=== PATIENT | female | born 1960 | race Caucasian/White ===

== ENCOUNTER 2017-02-16 00:21 | Emergency (ER) | payer MEDICARE ==
[2017-02-16 00:28] VITALS: BP 125/68; PULSE 60; O2SAT 96
--- NOTE | 2017-02-16 00:35 | ERPHSYRPT ---
- History of Present Illness Time Seen by Provider: 02/16/17 00:30 Source: patient Exam Limitations: no limitations Patient Subjective Stated Complaint: REPORTS THAT HER LOWER TOOTH HAS BEEN BOTHERING HER ALL DAY AND NOW CANT SEEM TO SLEEP AND BELIEVES THE TOOTH TO BE INFECTED Triage Nursing Assessment: AMBULATORY TO TREATMENT Physician History: States lower tooth 6 months ago and have not been able to see dentist. States thinks now it is infected with some swelling/pain to area. No fever, chills, dizziness, weakness or any systemic symptoms. States dull pain started today. Have not taken any meds for symptoms. Timing/Duration: today Severity: mild Modifying Factors: Improves With: eating (worsens) Associated Symptoms: No nausea, No vomiting, No fever Allergies/Adverse Reactions: No Known Drug Allergies Allergy (Unverified 02/16/17 00:23) Home Medications: Esomeprazole Magnesium [Nexium] 20 mg PO DAILY 02/16/17 [History] [place]-3 Fatty Acids [Fish Oil] 300 mg PO DAILY 02/16/17 [History] Hx Tetanus, Diphtheria Vaccination/Date Given: Yes Hx Influenza Vaccination/Date Given: No Hx Pneumococcal Vaccination/Date Given: No Immunizations Up to Date: Yes - Review of Systems Constitutional: No Symptoms, No Fever, No Chills Eyes: No Symptoms Ears, Nose, & Throat: Loose Teeth, Other (tooth pain) Respiratory: No Cough, No Dyspnea Cardiac: No Chest Pain, No Edema, No Syncope Abdominal/Gastrointestinal: No Abdominal Pain, No Nausea, No Vomiting, No Diarrhea Genitourinary Symptoms: No Dysuria Musculoskeletal: No Back Pain, No Neck Pain Skin: No Rash Neurological: No Dizziness, No Focal Weakness, No Sensory Changes Psychological: No Symptoms Endocrine: No Symptoms All Other Systems: Reviewed and Negative - Past Medical History Pertinent Past Medical History: Yes Cardiac History: High Cholesterol, Hypertension, Myocardial Infarction ([place]) Respiratory History: COPD Endocrine Medical History: Diabetes Type II GI Medical History: Hepatitis History: Kidney Cancer - Past Surgical History Past Surgical History: Yes Cardiac: Cardiac Catheterization, Cardiac Stent Musculoskeletal: Orthopedic Surgery Female Surgical History: Tubal Ligation Other Surgical History: KIDNEY - LEG/KNEE FUSION - Social History Smoking Status: Current every day smoker Exposure to second hand smoke: No Drug Use: none Patient Lives Alone: No - Female History Hx Last Menstrual Period: N/A - Nursing Vital Signs Nursing Vital Signs: Initial Vital Signs Temperature 98.5 F Temperature Source Oral Pulse Rate 60 Respiratory Rate 14 Blood Pressure [Right Arm] 125/68 Pain Intensity 10 - Physical Exam General Appearance: no apparent distress, alert Eye Exam: PERRL/EOMI, eyes nml inspection Ears, Nose, Throat Exam: normal ENT inspection, TMs normal, pharynx normal, moist mucous membranes, other (Multiple missing teeth with caries, some mild tenderness to lower cannines) Neck Exam: normal inspection, non-tender, supple, full range of motion Respiratory Exam: normal breath sounds, lungs clear, No respiratory distress Cardiovascular Exam: regular rate/rhythm, normal heart sounds, normal peripheral pulses Gastrointestinal/Abdomen Exam: soft, normal bowel sounds, No tenderness, No mass Back Exam: normal inspection, normal range of motion, No CVA tenderness, No vertebral tenderness Extremity Exam: normal inspection, normal range of motion, pelvis stable Neurologic Exam: alert, oriented x 3, cooperative, normal mood/affect, nml cerebellar function, nml station & gait, sensation nml, No motor deficits Skin Exam: normal color, warm, dry, No rash Lymphatic Exam: No adenopathy SpO2: 96 Oxygen Delivery: Room Air - Progress Progress: unchanged Progress Note: 02/16/17 00:38 Pt. given PVK. Wanted pain medicine but recently filled RX for narcotics. When asked if pt. used any pain meds, pt. initially stated no, but now changes to that her "pain meds are at home." Will give pt PVK only Counseled pt/family regarding: diagnosis - Departure Time of Disposition: 00:40 Departure Disposition: Home Clinical Impression: Dental caries Condition: Stable Critical Care Time: No Instructions: Tooth Decay Additional Instructions: RX: PenVK Follow up with dentist Return for any problems Prescriptions: Penicillin V Potassium 500 mg PO QID #40 tablet
[2017-02-16] MEDS ORDERED: PEN-VEE K PO ONE (00:42)
[2017-02-16] MEDS ORDERED: PEN-VEE K ONE (00:45)
== END 2017-02-16 00:51 | disposition home or self-care (01) ==
LOC: ED 00:21
DX: K02.9 Dental caries, unspecified (principal)
CPT/HCPCS: 99281; A9270-GY

== ENCOUNTER 2021-04-09 07:03 | Day surgery (SDC) | payer MEDICARE ==
[2021-04-09] MEDS ORDERED: LIDOCAINE HCL 2% 100 MG/5 ML IJ ONE (07:04)
[2021-04-09] MEDS ORDERED: DIPRIVAN 200 MG/20 ML IV ONE (08:49)
--- NOTE | 2021-04-09 10:18 | XRAY ---
Indication: Bilateral L4-S1 MBB. Intraoperative fluoroscopy provided for 16 seconds. Single digital spot image submitted for interpretation demonstrates posterior needle tips projecting over the expected left and right L4-S1 nerve roots. Correlate with intraoperative findings/report.
--- NOTE | 2021-04-09 10:22 | XRAY ---
16 seconds fluoroscopy time in surgery for bilateral L4-S1 MBB.
[2021-04-09] MEDS ORDERED: Lactated Ringers 1,000 ML IV ONE (15:51)
== END 2021-04-09 09:20 | disposition home or self-care (01) ==
LOC: SDC-PAIN 07:03
PROVIDERS: ATTEND Psychiatry & Neurology Pain Medicine
DX: M47.816 Spondylosis without myelopathy or radiculopathy, lumbar region (principal); E11.9 Type 2 diabetes mellitus without complications; Z79.899 Other long term (current) drug therapy
CPT/HCPCS: 64493; 64494; 72020; 77002; 82947; J2704

== ENCOUNTER 2021-07-30 09:23 | Day surgery (SDC) | payer MEDICARE ==
[2021-07-30] MEDS ORDERED: BUPIVACAINE 0.5% VIAL IJ ONE (09:24)
[2021-07-30] MEDS ORDERED: Lactated Ringers 1,000 ML IV ONE (10:43)
[2021-07-30] MEDS ORDERED: DIPRIVAN 200 MG/20 ML IV ONE (10:58)
--- NOTE | 2021-07-30 12:58 | XRAY ---
Indication: Bilateral L4-S1 MBB. Intraoperative fluoroscopy provided for 17 seconds. Single digital spot image submitted for interpretation demonstrates posterior needle tips projecting over the expected left and right L4-S1 nerve roots. Correlate with intraoperative findings/report.
--- NOTE | 2021-07-30 13:10 | XRAY ---
17 seconds fluoroscopy time in surgery for bilateral L4-S1 MBB.
== END 2021-07-30 11:30 | disposition home or self-care (01) ==
LOC: SDC-PAIN 09:23
PROVIDERS: ATTEND Psychiatry & Neurology Pain Medicine
DX: M47.816 Spondylosis without myelopathy or radiculopathy, lumbar region (principal); F41.9 Anxiety disorder, unspecified; F32.9 Major depressive disorder, single episode, unspecified; I25.10 Atherosclerotic heart disease of native coronary artery without angina pectoris; E11.9 Type 2 diabetes mellitus without complications; Z79.899 Other long term (current) drug therapy
CPT/HCPCS: 64493; 64494; 72020; 77002; 82947; J2704

== ENCOUNTER 2021-08-27 06:32 | Day surgery (SDC) | payer MEDICARE ==
[2021-08-27] MEDS ORDERED: BUPIVACAINE 0.5% VIAL IJ ONE (06:33)
[2021-08-27] MEDS ORDERED: Xylocaine 1% Vial 30 ML PF IJ ONE (06:33)
[2021-08-27] MEDS ORDERED: Depo-Medrol 40 MG/ML IM ONE (06:33)
[2021-08-27] MEDS ORDERED: DIPRIVAN 200 MG/20 ML IV ONE (08:01)
[2021-08-27] MEDS ORDERED: Lactated Ringers 1,000 ML IV ONE (08:50)
--- NOTE | 2021-08-27 10:21 | XRAY ---
20 seconds fluoroscopy time in surgery for left L4-S1 RFA.
--- NOTE | 2021-08-27 10:27 | XRAY ---
Indication: Left L4-S1 RFA. Intraoperative fluoroscopy provided for 20 seconds. 3 digital spot image submitted for interpretation demonstrates posterior needle tips projecting over the expected left L4-S1 nerve roots. Correlate with intraoperative findings/report.
== END 2021-08-27 08:39 | disposition home or self-care (01) ==
LOC: SDC-PAIN 06:32
PROVIDERS: ATTEND Psychiatry & Neurology Pain Medicine
DX: M47.816 Spondylosis without myelopathy or radiculopathy, lumbar region (principal); E11.9 Type 2 diabetes mellitus without complications; Z79.899 Other long term (current) drug therapy
CPT/HCPCS: 64635; 64636; 72100; 77002; 82947; J1030; J2001; J2704

== ENCOUNTER 2022-05-06 06:34 | Day surgery (SDC) | payer MEDICARE ==
[2022-05-06] MEDS ORDERED: XYLOCAINE-MPF 1% 5ML SDV IJ ONE (06:35)
[2022-05-06] MEDS ORDERED: Marcaine Mpf 0.5% Vial 30 Ml IJ ONE (06:35)
[2022-05-06] MEDS ORDERED: Depo-Medrol 40 MG/ML IM ONE (06:35)
[2022-05-06] MEDS ORDERED: DIPRIVAN 200 MG/20 ML IV ONE (07:58)
[2022-05-06] MEDS ORDERED: Lactated Ringers 1,000 ML IV ONE (10:14)
--- NOTE | 2022-05-06 11:14 | XRAY ---
24 seconds of fluoroscopy was used in surgery for a right L4-S1 RFA.
--- NOTE | 2022-05-06 11:15 | XRAY ---
Indication: Right L4-S1 RFA. Intraoperative fluoroscopy provided for 24 seconds. 3 digital spot image submitted for interpretation demonstrates posterior needle tips projecting over the expected right L4-S1 nerve roots. Correlate with intraoperative findings/report.
== END 2022-05-06 08:30 | disposition home or self-care (01) ==
LOC: SDC-PAIN 06:34
PROVIDERS: ATTEND Psychiatry & Neurology Pain Medicine
DX: M47.816 Spondylosis without myelopathy or radiculopathy, lumbar region (principal); E11.9 Type 2 diabetes mellitus without complications; Z79.899 Other long term (current) drug therapy
CPT/HCPCS: 64635; 64636; 72100; 77002; 82947; J1030; J2704

== ENCOUNTER 2022-11-04 07:43 | Day surgery (SDC) | payer MEDICARE ==
[2022-11-04] MEDS ORDERED: Depo-Medrol 40 MG/ML IM ONE (07:44)
[2022-11-04] MEDS ORDERED: BUPIVACAINE 0.5% VIAL IJ ONE (07:44)
[2022-11-04] MEDS ORDERED: DIPRIVAN 200 MG/20 ML IV ONE (09:37)
--- NOTE | 2022-11-04 12:23 | XRAY ---
23 seconds of fluoroscopy was used in surgery for a bilateral sacroiliac joint injection.
[2022-11-04] MEDS ORDERED: Lactated Ringers 1,000 ML IV ONE (13:26)
--- NOTE | 2022-11-04 14:20 | XRAY ---
Indication: Bilateral SI joint injection. Intraoperative fluoroscopy provided for 23 seconds. 4 digital spot image submitted for interpretation demonstrates posterior needle tip projecting over the left and right SI joint. Correlate with intraoperative findings/report. Incidental partially visualized right total hip arthroplasty.
== END 2022-11-04 10:06 | disposition home or self-care (01) ==
LOC: SDC-PAIN 07:43
PROVIDERS: ATTEND Psychiatry & Neurology Pain Medicine
DX: M46.1 Sacroiliitis, not elsewhere classified (principal); E11.9 Type 2 diabetes mellitus without complications; Z79.899 Other long term (current) drug therapy
CPT/HCPCS: 01992; 27096; 72202; 77002; 82947; G0260; J1030; J2704